=== PATIENT | female | born 1980 | race American Indian/Alaskan Native ===

== ENCOUNTER 2019-05-04 07:47 | Day surgery (SDC) | payer MEDICARE ==
--- NOTE | 2019-05-04 08:19 | Short Stay Summary ---
Short Stay Documentation Date of service: 05/04/19 Narrative H&P: Pt is a 38yo BF LMP 10/2018 presents for surgical evaluation and treatment of cervical dysplasia. Cxbx showed CIN3. - History Principal diagnosis: Cervical dysplasia H&P: obtained from office Past Medical History: No medical history Past Surgical History: No surgical history Social history: no significant social history, single - Allergies and Medications Current Medications: Allergies No Known Allergies Allergy (Unverified 04/28/19 17:08) Home Medications Medication Instructions Recorded Confirmed Last Taken Type No Known Home Medications [No 04/28/19 04/28/19 Unknown History Reported Home Medications] - Physical exam General appearance: no acute distress Integumentary: no rash HEENT: Atraumatic Lungs: Clear to auscultation Heart: Regular rate Gastrointestinal: normal Female Genitourinary: deferred Rectal Exam: deferred Extremities: no ischemia, No edema Neurological: Normal gait, Normal speech - Brief post op/procedure progress note Date of procedure: 05/04/19 Pre-op diagnosis: Cervical Dysplasia Post-op diagnosis: same Procedure: LEEP Anesthesia: MAC Findings: Normal appearing cervix Surgeon: GAYLE COYLE Estimated blood loss: minimal Pathology: list (Cone shaped portion of cervix) Condition: stable - Hospital course Hospital course: Unremarkable. - Disposition Condition at discharge: Good Disposition: DC-01 TO HOME OR SELFCARE - Discharge Diagnoses (1) Cervical dysplasia Status: Resolved Short Stay Discharge Plan Activity: no restrictions Diet: regular Follow up with: PRIMARY MD BRIA [Primary Care Provider] - 7 Days GAYLE COYLE MD [Staff Physician] - 14 Days Prescriptions: Ibuprofen [Motrin] 800 mg PO Q8HR PRN #20 tablet PRN Reason: Pain, Moderate (4-6)
[2019-05-04] MEDS ORDERED: HYDROmorphone 1 MG/1 ML INJ IV PRN (08:45)
[2019-05-04] MEDS ORDERED: ONDANSETRON 4 MG/2 ML INJ IV PRN (08:45)
--- NOTE | 2019-05-04 08:45 | Anesthesia Consultation ---
Anesthesia Consult and Med Hx Date of service: 05/04/19 - Airway Anesthetic Teeth Evaluation: Good ROM Head & Neck: Adequate Mental/Hyoid Distance: Adequate Mallampati Class: Class II Intubation Access Assessment: Good - Pulmonary Exam CTA: Yes - Cardiac Exam Cardiac Exam: RRR - Pre-Operative Health Status ASA Pre-Surgery Classification: ASA1 Proposed Anesthetic Plan: General - Central Nervous System Hx Psychiatric Problems: No - Other Systems Hx Alcohol Use: Yes (Occas) Hx Cancer: Yes
--- NOTE | 2019-05-04 08:45 | Anesthesia Day of Surgery ---
Anesthesia Day of Surgery - Day of Surgery Patient Examined: Yes Patient H&P Reviewed: Yes Patient is NPO: Yes
[2019-05-04] MEDS ORDERED: ceFAZolin/Water 2 GM/20 ML 2 GM/20 ML SYRINGE IV NR (09:00)
[2019-05-04] MEDS ORDERED: LACTATED RINGERS 1,000 ML ONE (09:06)
[2019-05-04] MEDS ORDERED: LIDOCAINE MPF (2%) 20 MG/1 ML VIAL 5 ML ONE (09:08)
[2019-05-04] MEDS ORDERED: PROPOFOL 200 MG/20 ML VIAL IV ONE (09:08)
[2019-05-04] MEDS ORDERED: fentaNYL 100 MCG/2 ML INJ ONE (09:08)
[2019-05-04 09:09] LABS: Hematocrit 37.1 % (30.3-42.9); Hemoglobin 12.1 gm/dl (10.1-14.3)
[2019-05-04] MEDS ORDERED: FERRIC SUBSULFATE TOPICAL SOLN 8 ML TP ONE (09:12)
[2019-05-04] MEDS ORDERED: ACETIC ACID 3% SOLN 60 ML TP ONE (09:13)
[2019-05-04] MEDS ORDERED: POTASSIUM IODIDE/IODINE (LUGOLS) 30 ML TP ONE (09:13)
[2019-05-04] MEDS ORDERED: SILVER NITRATE APPLICATOR 1 EA TP ONE (09:13)
[2019-05-04] MEDS ORDERED: LIDOCAINE 1%/EPINEPHRINE 1:100,000 VIAL (20 ML) INFILTRATI ONE (09:13)
[2019-05-04] MEDS ORDERED: LACTATED RINGERS 1,000 ML IV SCH (10:00)
[2019-05-04] MEDS ORDERED: SODIUM CHLORIDE 0.9% IRR 1,500 ML BOTTLE IR ONE (10:00)
--- NOTE | 2019-05-04 10:21 | Operative Report ---
Operative Report Operative Report: Date of procedure: 05/04/2019 Pre-operative diagnosis: Severe cervical dysplasia Post-operative diagnosis: Same Procedure name(s): Loop electrocautery excision procedure (LEEP) Surgeon: Dr. Brandan Deluca Senior Loss Control Specialist: None Anesthesia: GenMeg [place] EBL: Minimal Findings: Normal-appearing cervix with white epithelium Procedure: After the patient was correctly identified, she was prepped and draped in the usual sterile fashion and placed in the dorsolithotomy position. First the bladder was emptied using a straight catheter, and the speculum was placed in the vaginal vault. Visualization of the cervix found a normal- appearing cervix with white epithelium. A 15 mm loop was used to perform the excision, the specimen was tagged at 12 o'clock position and sent to pathology. The base of the excision was cauterized, and excellent hemostasis was assured. There was some small amount of bleeding from the vaginal wall which was made hemostatic using a single suture of 0 Vicryl suture in [id number] configuration. At this point the procedure was considered complete. All instruments removed from the vagina. The patient tolerated the procedure well and was transported to recovery in stable condition.
[2019-05-04 11:13] VITALS: BP 124/76
--- NOTE | 2019-05-05 12:52 | Post Anesthesia Evaluation ---
- Post Anesthesia Evaluation Patient Participated: Yes Airway Patent: Yes Stable Respiratory Function: Yes Nausea/Vomiting: No Temp > 96.8F: Yes Pain Manageable: Yes Adequeate Hydration: Yes Anesthesia Complications: No Block Receding Appropriately: Not Applicable Patient on Ventilator: No
== END 2019-05-04 12:10 | disposition home or self-care (01) ==
LOC: OR 07:47
PROVIDERS: ATTEND Obstetrics & Gynecology
DX: D06.9 Carcinoma in situ of cervix, unspecified (principal); Z79.899 Other long term (current) drug therapy; Z72.89 Other problems related to lifestyle; Z85.89 Personal history of malignant neoplasm of other organs and systems; Z98.890 Other specified postprocedural states
CPT/HCPCS: 36415; 57522; 81025; 85014; 85018; 88307; J0690; J1170; J2704; J3010; J7120; 88341; 88342